=== PATIENT | female | born 1955 ===

== ENCOUNTER 2021-02-05 14:01 | Emergency (ER) | payer MEDICARE, MEDICAID ==
[~2021-02-05] VITALS: Ht 167.6 cm; Wt 104.0 kg
[2021-02-05 16:10] VITALS: BP 148/77
== END 2021-02-05 18:34 | disposition home or self-care (01) ==
LOC: ER 14:03
DX: Z13.9 Encounter for screening, unspecified (principal)
CPT/HCPCS: 99281